=== PATIENT | female | born 1975 | race American Indian/Alaskan Native ===

== ENCOUNTER 2022-05-22 10:05 | Outpatient (CLI) | payer OTHER ==
[2022-06-01 17:49] LABS: CD4/CD8 Ratio 0.7 (0.86-5.00)
== END 2022-05-22 10:06 | disposition home or self-care (01) ==
LOC: LAB 10:05
PROVIDERS: ATTEND Internal Medicine
DX: Z02.71 Encounter for disability determination (principal)
CPT/HCPCS: 36415; 82024